=== PATIENT | male | born 1950 | race Caucasian/White ===

== ENCOUNTER 2022-09-22 21:20 | Emergency (ER) | payer SELFPAY ==
[~2022-09-22] VITALS: Ht 177.8 cm; Wt 106.6 kg
== END 2022-09-23 00:08 ==
LOC: ED 21:20 → EDBD 21:22 → ED 21:22
DX: I46.9 Cardiac arrest, cause unspecified (principal)
CPT/HCPCS: 31500; 32551; 92950; 99285-25; G0390; J0171; J0461